=== PATIENT | female | born 1995 | race African-American/Black ===

== ENCOUNTER 2016-10-04 16:10 | Emergency (ER) | payer OTHER ==
[~2016-10-04] VITALS: Ht 167.6 cm; Wt 129.3 kg
[~2016-10-04 16:10] MED LIST: ACET50TA PO; IBUP80TA PO; PRENATAL VITAMIN PO
[2016-10-04 16:11] VITALS: BP 132/72
[2016-10-04] MEDS ORDERED: ZOFR4TAB3 PO (16:34)
[2016-10-04 16:54] LABS: CONTROL LINE UCG INT CTR LINE PRESENT
[2016-10-04] MEDS ORDERED: ONDANSETRON 4 MG ORAL DISINTEGRATING TAB (S0181) PO ONE (17:00)
== END 2016-10-04 17:23 | disposition home or self-care (01) ==
LOC: M ED 16:50
DX: K29.70 Gastritis, unspecified, without bleeding (principal)

== ENCOUNTER 2016-11-07 08:04 | Emergency (ER) | payer OTHER ==
[~2016-11-07] VITALS: Ht 167.6 cm; Wt 84.4 kg
[~2016-11-07 08:04] MED LIST changes: +ZOFR4TAB3 PO
[2016-11-07] MEDS ORDERED: KETOROLAC 60 MG/2 ML VIAL (J1885) IM ONE (08:45)
--- NOTE | 2016-11-07 09:32 | REP ---
CT cervical spine without contrast HISTORY: Neck pain COMPARISON: None There is no acute fracture or subluxation. There is no disc bulge or herniation. The spinal canal and neural foramina are patent. The intervertebral discs and vertebral bodies are normal in height. IMPRESSION: There is no acute fracture or subluxation. Signed by Chad Vanegas MD 11/07/2016 09:24 A
[2016-11-07] MEDS ORDERED: PRED20TA PO (09:35)
[2016-11-07] MEDS ORDERED: VALI5TAB PO (09:35)
[2016-11-07 09:42] VITALS: BP 125/66
== END 2016-11-07 09:47 | disposition home or self-care (01) ==
LOC: M ED 09:04
DX: S16.1XXA Strain of muscle, fascia and tendon at neck level, initial encounter (principal); G44.209 Tension-type headache, unspecified, not intractable; V49.60XD Unspecified car occupant injured in collision with unspecified motor vehicles in traffic accident, subsequent encounter; Y92.410 Unspecified street and highway as the place of occurrence of the external cause
CPT/HCPCS: 72125; 96372; 99282; J1885; J3360

== ENCOUNTER 2016-12-15 08:21 | Emergency (ER) | payer OTHER ==
[~2016-12-15] VITALS: Ht 167.6 cm; Wt 88.6 kg
[~2016-12-15 08:21] MED LIST changes: +PRED20TA PO; +VALI5TAB PO
[2016-12-15 08:40] VITALS: BP 118/66
[2016-12-15] MEDS ORDERED: CLEO300C2 PO ×2 (09:10→10:23)
--- NOTE | 2016-12-15 10:25 | ED PDOC ---
Post-Departure Follow-Up RECEIVED CALL FROM PHARMACY AT [id number] STATING THAT THEY DID NOT RECEIVE THE PRESCRIPTION FOR CLINDAMYCIN FOR THIS PT. [facility] RED TAB APPEARING ON TRACKER FOR THIS PT. CHANTELL ARTHUR CONTACTED DIANNA FROM [facility] AND ASKED ADVICE TO PROCEED. NEW PRESCRIPTION FOR CLINDAMYCIN WRITTEN IN [facility] AND SENT AGAIN. CARLOS NORIEGA PA-C Dec 15, 2016 10:25
== END 2016-12-15 09:15 | disposition home or self-care (01) ==
LOC: M ED 08:21
DX: L03.115 Cellulitis of right lower limb (principal); S70.361A Insect bite (nonvenomous), right thigh, initial encounter; W57.XXXA Bitten or stung by nonvenomous insect and other nonvenomous arthropods, initial encounter; Y92.89 Other specified places as the place of occurrence of the external cause; Y93.89 Activity, other specified; Y99.8 Other external cause status

== ENCOUNTER → 2017-01-08 | Outpatient (REF) | payer OTHER ==
[~2017-01-08] MED LIST changes: +CLEO300C2 PO; +GUAISYP4 PO; +IBUP-1114 PO; +NAPR500T3 PO; +NEXP1IMP SC; +PROAAER10 INH; +ZITHTAB PO
== END ==
LOC: M SFHCLERA 11:37
PROVIDERS: ATTEND Nurse Practitioner Family
DX: R10.2 Pelvic and perineal pain (principal)

== ENCOUNTER 2017-04-04 15:08 | Emergency (ER) | payer OTHER ==
[~2017-04-04] VITALS: Ht 167.6 cm; Wt 93.2 kg
[~2017-04-04 15:08] MED LIST changes: -GUAISYP4 PO; -IBUP-1114 PO; -NAPR500T3 PO; -NEXP1IMP SC; -PROAAER10 INH; -ZITHTAB PO
[2017-04-04] MEDS ORDERED: IBUP-1114 PO (15:25)
[2017-04-04] MEDS ORDERED: NEXP1IMP SC (15:25)
[2017-04-04] MEDS ORDERED: PROAAER10 INH ×2 (16:42→17:27)
[2017-04-04] MEDS ORDERED: ZITHTAB PO ×2 (16:42→17:27)
[2017-04-04] MEDS ORDERED: NAPR500T3 PO ×2 (16:42→17:27)
[2017-04-04] MEDS ORDERED: PRED20TA PO ×2 (16:42→17:27)
[2017-04-04] MEDS ORDERED: IPRATROPIUM 0.5MG/ALBUTEROL 2.5MG INH SOL UD 3ML (DUONEB)(J7620) NEB ONE (16:45)
[2017-04-04 17:26] VITALS: BP 139/77
[2017-04-04] MEDS ORDERED: GUAISYP4 PO (17:27)
--- NOTE | 2017-04-04 17:47 | REP ---
CHEST, TWO VIEWS: There is no evidence of acute infiltrate. No pleural effusion is seen. The heart is normal in size. The mediastinal silhouette is unremarkable. The visualized osseous structures are intact. IMPRESSION: No acute pulmonary disease. Signed by Jeremy Simmons MD 04/04/2017 07:51 P
== END 2017-04-04 17:32 | disposition home or self-care (01) ==
LOC: M ED 15:08
DX: J20.9 Acute bronchitis, unspecified (principal); J01.00 Acute maxillary sinusitis, unspecified; Z79.2 Long term (current) use of antibiotics; Z79.3 Long term (current) use of hormonal contraceptives

== ENCOUNTER 2017-04-20 00:18 | Inpatient (IN) | payer OTHER ==
[~2017-04-20] VITALS: Ht 167.6 cm; Wt 97.0 kg
[~2017-04-20 00:18] MED LIST changes: +GUAISYP4 PO; +IBUP-1114 PO; +NAPR500T3 PO; +NEXP1IMP SC; +PROAAER10 INH; +ZITHTAB PO
[2017-04-20] MEDS ORDERED: NAPR500T3 PO (00:32)
[2017-04-20] MEDS ORDERED: NS 1,000 ML IV ONE (01:00)
[2017-04-20 01:05] LABS: BASO % 0.4 % (0.0-1.0); EOS # 0.4 10^3/uL (0.0-0.50); EOS % 3.3 % (0.0-3.0); IMMATURE GRANULOCYTE % 0.4 % (0-0); LYMPH # 3.6 10^3/uL (1.5-6.5); LYMPH % 31.3 % (24.0-44.0); MEAN CORPUSCULAR HEMOGLOBIN 28.9 pg (27.0-33.0); MEAN CORPUSCULAR HGB CONC 32.3 g/dl (32.0-36.5); MEAN CORPUSCULAR VOLUME 89.6 fl (80.0-96.0); MONO # 1.1 10^3/uL (0.0-0.8); MONO % 9.5 % (0.0-5.0); NEUTROPHILS # 6.3 10^3/uL (1.8-7.7); NEUTROPHILS % 55.1 % (36.0-66.0); PLATELET COUNT, AUTOMATED 289 10^3/uL (150-450); WHITE BLOOD COUNT 11.4 10^3/uL (4.0-10.0)
[2017-04-20 01:14] LABS: CONTROL LINE HCG INT CTR LINE PRESENT
[2017-04-20] MEDS ORDERED: CHARCOAL ACTIVATED LIQUID 25 GM/120 ML BTL PO ONE (01:30)
[2017-04-20 01:32] LABS: ALBUMIN 3.5 GM/DL (3.2-5.2); ALBUMIN/GLOBULIN RATIO 0.95 (1.00-1.93); ALKALINE PHOSPHATASE 64 U/L (45-117); ALT/SGPT 31 U/L (12-78); ANION GAP 6 MEQ/L (8-16); AST/SGOT 14 U/L (7-37); BILIRUBIN,DIRECT 0.1 MG/DL (0.0-0.2); BILIRUBIN,TOTAL 0.2 MG/DL (0.2-1.0); BLOOD UREA NITROGEN 12 MG/DL (7-18); CALCIUM LEVEL 8.3 MG/DL (8.5-10.1); CARBON DIOXIDE LEVEL 22 MEQ/L (21-32); CHLORIDE LEVEL 111 MEQ/L (98-107); CREATININE FOR GFR 0.68 MG/DL (0.55-1.02); GLOMERULAR FILTRATION RATE > 60.0 (>60); GLUCOSE, FASTING 127 MG/DL (70-105); POTASSIUM SERUM 3.9 MEQ/L (3.5-5.1); SODIUM LEVEL 139 MEQ/L (136-145); TOTAL PROTEIN 7.2 GM/DL (6.4-8.2)
[2017-04-20 01:32] LABS: METHADONE URINE NEGATIVE (NEGATIVE)
[2017-04-20] MEDS ORDERED: ONDANSETRON 4MG/2ML VIAL (J2405) As Ordered ONE (01:43)
[2017-04-20] MEDS ORDERED: ONDANSETRON 4MG/2ML VIAL (J2405) IV ONE (01:45)
[2017-04-20] MEDS ORDERED: POTASSIUM CHLORIDE 10 MEQ SR TABLET PO ONE (03:15)
[2017-04-20] MEDS: AMOXICILLIN 500 MG CAP PO SCH ×3 (06:00→22:12)
[2017-04-20] MEDS ORDERED: ACETAMINOPHEN TAB 650MG DOSE (2X325MG) PO PRN (07:00)
[2017-04-20] MEDS ORDERED: MOM 30ML SUSPENSION UDC PO PRN (07:00)
[2017-04-20] MEDS ORDERED: MAALOX 30 ML SUSP *UDC PO PRN (07:00)
[2017-04-20] MEDS ORDERED: traZODone 50 MG TAB PO PRN (07:00)
[2017-04-20 08:25] VITALS: BP 159/78
[2017-04-20] MEDS: SERTRALINE HCL 25 MG TABLET PO SCH (09:00)
[2017-04-20] MEDS ORDERED: CEPACOL LOZENGE PO PRN (09:15)
[2017-04-20] MEDS ORDERED: SODIUM CHLORIDE NASAL 0.65% SPRAY BTL (OCEAN) PRN (09:15)
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
--- NOTE | 2017-04-20 12:45 | ECGEPIP ---
Stationary ECG Study [facility] - ED Test Date: 2017-04-20 Pat Name: SHERRY CHOE Department: Room: [place] [address] Gender: F Explosives Detonator: LucianoB: 1995 Requested By: TAN Yoon Order Number: [id number] Reading MD: Mikayla Stratton Measurements Intervals [place] Rate: 87 P: 21 DE: 165 QRS: -28 QRSD: 102 T: 10 QT: 358 QTc: 433 Interpretive Statements SINUS RHYTHM WITH SINUS ARRHYTHMIA BORDERLINE LEFT AXIS DEVIATION MODERATE VOLTAGE CRITERIA FOR LVH, CONSIDER NORMAL VARIANT NO PRIOR FOR COMPARISON Electronically Signed On 04-20-2017 12:44:47 EST by Mikayla Stratton
[2017-04-20] MEDS: FLUTICASONE PROP 0.05% NASAL SPRAY 16 GM (FLONASE) SCH (17:06)
[2017-04-20 18:00] VITALS: BP 131/80
--- NOTE | 2017-04-20 18:33 | ECGEPIP ---
Stationary ECG Study [facility] Test Date: 2017-04-20 Pat Name: SHERRY CHOE Department: Room: [place] [address] Gender: F Coat Tailor: NIKKO : 1995 Requested By: Nevaeh Fernández Order Number: [id number] Reading MD: Hany Lawrence Measurements Intervals [place] Rate: 93 P: 29 NV: 173 QRS: -26 QRSD: 103 T: 4 QT: 352 QTc: 438 Interpretive Statements SINUS RHYTHM BORDERLINE LEFT AXIS DEVIATION INCOMPLETE RIGHT BUNDLE BRANCH BLOCK MODERATE VOLTAGE CRITERIA FOR LVH, CONSIDER NORMAL VARIANT SIMILAR TO 5:32 SAME DAY Electronically Signed On 04-20-2017 18:32:53 EST by Hany Lawrence
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
[2017-04-21] MEDS: AMOXICILLIN 500 MG CAP PO SCH ×3 (05:45→21:40)
[2017-04-21 06:24] VITALS: BP 141/67
[2017-04-21 07:07] LABS: MEAN CORPUSCULAR HEMOGLOBIN 29.1 pg (27.0-33.0); MEAN CORPUSCULAR HGB CONC 32.7 g/dl (32.0-36.5); MEAN CORPUSCULAR VOLUME 89.1 fl (80.0-96.0); PLATELET COUNT, AUTOMATED 277 10^3/uL (150-450); RED CELL DISTRIBUTION WIDTH 11.9 % (11.5-14.5); WHITE BLOOD COUNT 6.2 10^3/uL (4.0-10.0)
[2017-04-21] MEDS: SERTRALINE HCL 25 MG TABLET PO SCH (09:00)
[2017-04-21] MEDS: FLUTICASONE PROP 0.05% NASAL SPRAY 16 GM (FLONASE) SCH (09:05)
[2017-04-21 18:00] VITALS: BP 136/66
[2017-04-21 21:00] VITALS: BP 158/80
--- NOTE | 2017-04-21 21:07 | MHIPN ---
DATE: 04/21/2017 HISTORY: A 21-year-old female admitted to our unit for treatment of depression. The patient overdosed prior to admission. The patient has tendency to minimize symptoms and all the events that led to her admission. MEDICATIONS: - Abilify 2.5 mg by mouth twice a day - Zoloft 25 mg by mouth every morning - trazodone 50 as needed for insomnia SUBJECTIVE: "I'm feeling better." OBJECTIVE: The patient is not taking her psychotropic medications as prescribed by her primary psychiatrist. The patient says that she is improving and she would like to try her treatment without having to take medication. The patient is interacting better with other patients and staff. Her psychomotor retardation has improved, as is her facial expression. There is no evidence of psychotic symptoms. MENTAL STATUS EXAMINATION: The patient is dressed in [facility]. The patient has fair eye contact. Speech is normal in rate, volume, and articulation. Is coherent and is spontaneous. Mood is depressed and anxious. Affect is less restricted. No evidence of delusions or hallucinations. Memory, attention and concentration are fair. The patient is able to contract for safety while in the hospital. Insight and judgment are limited. ASSESSMENT: 1. Depression. 2. Suicidal ideation. 3. Status post overdose. PLAN: 1. Continue Abilify 2.5 mg by mouth twice a day. 2. Zoloft 25 mg by mouth every morning. 3. Trazodone 50 mg by mouth at bedtime as needed for insomnia. 4. The patient is to discuss the psychotropic medication management with her primary psychiatrist.
[2017-04-22] MEDS: AMOXICILLIN 500 MG CAP PO SCH ×3 (05:52→21:25)
[2017-04-22 06:24] VITALS: BP 116/62
[2017-04-22] MEDS: SERTRALINE HCL 25 MG TABLET PO SCH (09:00)
[2017-04-22] MEDS: FLUTICASONE PROP 0.05% NASAL SPRAY 16 GM (FLONASE) SCH (09:14)
[2017-04-22 18:00] VITALS: BP 114/73
--- NOTE | 2017-04-22 21:35 | MHIPN ---
DATE OF SERVICE: 04/22/2017 HISTORY: A 21-year-old female admitted to our unit for treatment of depression. The patient overdosed prior to admission. The patient has tendency to minimize symptoms and reports feeling "very good." SUBJECTIVE: "I'm doing fine." OBJECTIVE: The patient is not willing to take psychotropic medication. The patient stated last evening that she had very dark black stool. Testing is negative. She also had her blood pressure mildly increased but is doing fine this morning. Encouraged the patient to discuss her psychotropic medication with her primary psychiatrist. MENTAL STATUS EXAMINATION: The patient dressed in [facility]. The patient is cooperative during exam. Speech is normal in rate, volume, articulation. Is coherent and spontaneous. Mood is depressed and anxious but is improving. Affect is less restricted. There is no evidence of psychosis. No delusions, no hallucinations. Memory, attention and concentration are fair. The patient is able to contract for safety while in the hospital. Insight and judgment are fair. ASSESSMENT: 1. Depression. 2. Suicidal ideation. 3. Status post overdose. PLAN: 1. Continue Abilify 2.5 mg by mouth twice a day. 2. Zoloft 25 mg by mouth every morning. 3. Trazodone 50 mg by mouth at bedtime as needed for insomnia. 4. The patient is to discuss the psychotropic medication management with her primary psychiatrist since she is not willing to take medication.
[2017-04-23] MEDS: AMOXICILLIN 500 MG CAP PO SCH ×2 (06:23→13:28)
[2017-04-23 06:32] VITALS: BP 134/72
[2017-04-23] MEDS: SERTRALINE HCL 25 MG TABLET PO SCH (09:00)
[2017-04-23] MEDS: FLUTICASONE PROP 0.05% NASAL SPRAY 16 GM (FLONASE) SCH (09:56)
[2017-04-23] MEDS ORDERED: AMOX500C PO (13:03)
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
== END 2017-04-23 14:20 | disposition home or self-care (01) | DRG 881 ==
LOC: M ED 00:18 → EDBD 00:18 → M ED INP 06:53 → M PSY 08:20
PROVIDERS: ADMIT Psychiatry & Neurology Psychiatry; ATTEND Psychiatry & Neurology Psychiatry
DX: F32.9 Major depressive disorder, single episode, unspecified (principal); F60.3 Borderline personality disorder; F60.7 Dependent personality disorder; Z62.810 Personal history of physical and sexual abuse in childhood; Z81.8 Family history of other mental and behavioral disorders; M54.2 Cervicalgia; J32.9 Chronic sinusitis, unspecified; T39.312A Poisoning by propionic acid derivatives, intentional self-harm, initial encounter; T40.4X2A Poisoning by other synthetic narcotics, intentional self-harm, initial encounter; T48.1X2A Poisoning by skeletal muscle relaxants [neuromuscular blocking agents], intentional self-harm, initial encounter; Y92.009 Unspecified place in unspecified non-institutional (private) residence as the place of occurrence of the external cause; Y99.8 Other external cause status; Z79.899 Other long term (current) drug therapy

== ENCOUNTER 2017-05-07 19:13 | Emergency (ER) | payer OTHER ==
[~2017-05-07] VITALS: Ht 167.6 cm; Wt 95.5 kg
[2017-05-07 19:13] VITALS: BP 138/85
[~2017-05-07 19:13] MED LIST changes: +AMOX500C PO
== END 2017-05-07 19:20 | disposition left against medical advice (07) ==
LOC: M ED 19:13
DX: Z53.21 Procedure and treatment not carried out due to patient leaving prior to being seen by health care provider (principal)